=== PATIENT | female | born 1980 | race Two or more races ===

== ENCOUNTER 2019-12-31 05:24 | Emergency (ER) | payer SELFPAY ==
[~2019-12-31] VITALS: Ht 165.1 cm; Wt 68.0 kg
--- NOTE | 2019-12-31 05:44 | NUR ---
THIS IS A 39Y F BIB EMS FROM HOME FOR N/V/D SINCE WEDNESDAY, PT HAS HX OF HTN AND DM TYPE 2, STS COMPLIANT WITH METFORMIN AND LISINOPRIL. PT ALSO HAS HAD A COUGH AND HOWELL FOR THE SAME LENGTH OF TIME. PT CONNECTED TO ALL MONITORING VSS AT THIS TIME
[2019-12-31] MEDS ORDERED: ONDANSETRON 2MG/ML, 2ML ONE (05:51)
[2019-12-31] MEDS ORDERED: FAMOTIDINE 20 MG/2 ML ONE (05:51)
[2019-12-31] MEDS ORDERED: MAALOX/HYOSCYAMINE/LIDOCAINE 45 ML BTL ONE (05:51)
[2019-12-31] MEDS ORDERED: KETOROLAC 30 MG/1 ML ONE (05:54)
[2019-12-31] MEDS ORDERED: FAMOTIDINE 20 MG/2 ML IV ONE (06:00)
[2019-12-31] MEDS ORDERED: KETOROLAC 30 MG/1 ML IVPush ONE (06:00)
[2019-12-31] MEDS ORDERED: ONDANSETRON 2MG/ML, 2ML IVPush ONE (06:00)
[2019-12-31] MEDS ORDERED: MAALOX/HYOSCYAMINE/LIDOCAINE 45 ML BTL PO ONE (06:00)
[2019-12-31] MEDS ORDERED: SODIUM CHLORIDE FLUSH 10ML SYR IVF ONE (06:00)
[2019-12-31] MEDS ORDERED: SODIUM CHLORIDE 0.9% 1,000ML IVBOLUS ONE (06:00)
--- NOTE | 2019-12-31 06:09 | NUR ---
PT MEDICATED PER MAR AT THIS TIME. PT RESTING IN [facility] WITH NADN. CALL LIGHT WITHIN REACH OF PT AT THIS TIME.
[2019-12-31 06:13] LABS: BASOPHILS % (AUTO) 0 % (0-1); EOSINOPHILS % (AUTO) 0 % (1-7); LYMPHOCYTES % (AUTO) 10 % (22-44); MEAN CORPUSCULAR HEMOGLOBIN 17.5 pg (27.0-34.8); MEAN CORPUSCULAR HGB CONC 30.3 g/dL (32.4-35.8); MEAN PLATELET VOLUME 8.8 fL (7.4-10.4); MONOCYTES % (AUTO) 5 % (2-9); NEUTROPHILS % (AUTO) 85 % (42-75); PLATELET COUNT 266 x10^3/uL (130-400); RED BLOOD COUNT 4.89 x10^6/uL (3.82-5.3); RED CELL DISTRIBUTION WIDTH 18.8 % (9.6-15.2)
[2019-12-31 06:19] LABS: ALBUMIN 2.9 g/dL (3.4-5.0); CALCIUM 8.1 mg/dL (8.5-10.1); CREATININE 0.57 mg/dL (0.55-1.02)
[2019-12-31 06:46] LABS: CHLORIDE 101 mmol/L (98-107)
[2019-12-31 06:47] LABS: ANION GAP 11 mmol/L (5-15)
[2019-12-31 06:56] LABS: MD MORPH REVIEW ONLY
[2019-12-31 06:59] LABS: ANISOCYTOSIS 2+; MICROCYTOSIS 2+
[2019-12-31] MEDS ORDERED: POTASSIUM CHLORIDE 20 MEQ TAB.ER.PRT PO ONE (07:00)
[2019-12-31 07:01] LABS: HYPOCHROMIA 1+; OVALOCYTES 1+
[2019-12-31 07:02] LABS: <PLATELET ESTIMATE> ADEQUATE; <PLT MORPHOLOGY> NORMAL PLT MORPH
[2019-12-31] MEDS ORDERED: POTASSIUM CHLORIDE 20 MEQ TAB.ER.PRT ONE (07:07)
--- NOTE | 2019-12-31 07:15 | NUR ---
PT RESTING WITH EYES CLOSED. PT AWAKENED TO RN ENTERING ROOM. PT STATES SHE IS COLD. 2 MORE BLANKETS PROVIDED. PT MEDICATED PER APR.
[2019-12-31 09:29] VITALS: BP 167/80
== END 2019-12-31 09:57 | disposition home or self-care (01) ==
LOC: ED 09:50
DX: U07.1 COVID-19 (principal); B34.9 Viral infection, unspecified; R11.2 Nausea with vomiting, unspecified; I11.9 Hypertensive heart disease without heart failure; E11.9 Type 2 diabetes mellitus without complications
CPT/HCPCS: 71045; 71250; 80048; 82040; 82962; 83690; 84703; 85025; 87635; 93005; 96361; 96374; 96375; 99285; J1885; J2405; J7030